=== PATIENT | male | born 1995 | race African-American/Black ===

== ENCOUNTER 2021-11-04 02:55 | Emergency (ER) | payer OTHER ==
[2021-11-04 03:18] VITALS: BP 112/89; PULSE 75; TEMP 98.2; BMI 28.2
[2021-11-04] MEDS ORDERED: KETOROLAC TROMETHAMINE 30 MG/1 ML VIAL IM ONE (03:37)
[2021-11-04] MEDS ORDERED: KETOROLAC TROMETHAMINE 30 MG/1 ML VIAL ONE (03:46)
== END 2021-11-04 03:54 | disposition home or self-care (01) ==
LOC: JER 02:55
PROC: 3E0233Z Introduction of Anti-inflammatory into Muscle, Percutaneous Approach (ICD-10-PCS; principal; 2021-11-04)
DX: K02.9 Dental caries, unspecified (principal)
CPT/HCPCS: 99283-25

== ENCOUNTER 2021-12-10 15:49 | Emergency (ER) | payer OTHER ==
[2021-12-10 16:11] VITALS: BP 135/85; PULSE 90; RESP 18; TEMP 98.2; BMI 24.2
== END 2021-12-10 17:11 | disposition home or self-care (01) ==
LOC: JER 15:49 → JERFT 15:49
DX: K08.89 Other specified disorders of teeth and supporting structures (principal)
CPT/HCPCS: 99281-25

== ENCOUNTER 2022-03-19 11:22 | Emergency (ER) | payer OTHER ==
[2022-03-19 12:17] VITALS: BP 128/78; PULSE 57; RESP 18; TEMP 98.2; BMI 24.4
[2022-03-19] MEDS ORDERED: CLINDAMYCIN HCL 150 MG CAPSULE (FP) PO ONE (15:42)
[2022-03-19] MEDS ORDERED: CLINDAMYCIN HCL 150 MG CAPSULE (FP) ONE (15:50)
[2022-03-19] MEDS ORDERED: IBUPROFEN 600 MG TABLET (FP) PO ONE (15:52)
== END 2022-03-19 17:41 | disposition short-term general hospital (02) ==
LOC: JERFT 11:22 → JER 11:22 → JERFT 17:41
DX: K04.7 Periapical abscess without sinus (principal)
CPT/HCPCS: 99285-25

== ENCOUNTER 2022-07-20 20:09 | Emergency (ER) | payer OTHER ==
[2022-07-20 20:12] VITALS: BP 134/84; RESP 18; TEMP 97; BMI 23.0
[2022-07-20 20:46] VITALS: PULSE 70
[2022-07-20] MEDS ORDERED: KETOROLAC TROMETHAMINE 30 MG/1 ML VIAL ONE (20:47)
[2022-07-20] MEDS ORDERED: KETOROLAC TROMETHAMINE 30 MG/1 ML VIAL IM ONE (20:47)
== END 2022-07-20 21:25 | disposition home or self-care (01) ==
LOC: JERFT 20:09
PROC: 3E023GC Introduction of Other Therapeutic Substance into Muscle, Percutaneous Approach (ICD-10-PCS; principal; 2022-07-20)
DX: K08.89 Other specified disorders of teeth and supporting structures (principal)
CPT/HCPCS: 99284-25